=== PATIENT | male | born 1990 | race Two or more races ===

== ENCOUNTER 2017-04-19 03:03 | Emergency (ER) | payer SELFPAY ==
[~2017-04-19] VITALS: Ht 167.6 cm; Wt 63.5 kg
[2017-04-19 02:58] VITALS: BP 120/73
[2017-04-19] MEDS ORDERED: Activated Charcoal 50gm/240ml Btl ORAL ONE (03:15)
--- NOTE | 2017-04-19 03:21 | Emergency Room Report ---
History of Present Illness General Chief Complaint: Overdose Source: Patient Present Illness HPI This is a 26-year-old male with no past medical history. He presents with an overdose. Per EMS, girlfriend called 911 because he took an unknown amount of Excedrin. Patient had been in a verbal altercation with his girlfriend. He didn't took unknown amount of Excedrin. Girlfriend called 911. Patient denies taking any medication. He denies any suicidal or homicidal. Overall, he is not cooperating. Allergies: Coded Allergies: No Known Allergies (Unverified , 04/19/17) Patient History Past Medical History: none, see triage record, old chart reviewed Past Surgical History: none Family History: none Social History: single Immunizations: other Reviewed Nursing Documentation: PMH: Agreed, PSxH: Agreed Nursing Documentation-PMH Past Medical History: No Stated History Review of Systems ENT: Denies: sore throat Cardiovascular: Denies: chest pain, palpitations Gastrointestinal/Abdominal: Denies: diarrhea, nausea, vomiting Musculoskeletal: Denies: back problems Skin: Denies: rash Neurological: Denies: COVARRUBIAS, seizures All Other Systems: negative except mentioned in HPI Physical Exam Vital Signs Date Time Temp Pulse Resp B/P Pulse Ox O2 Delivery O2 Flow Rate FiO2 04/19/17 02:55 97.9 81 20 120/73 99 Room Air vitals normal Sp02 EP Interpretation: reviewed, normal General Appearance: alert/responsive, no apparent distress, non-toxic Head: normocephalic, atraumatic Eyes: PERRL, EOMI ENT: oropharynx normal Neck: supple/symm/no masses Respiratory: effort normal, no rhonchi, no wheezing Cardiovascular: no murmur, gallop, rub Gastrointestinal: non-tender, no mass, non-distended, no rebound/guarding, normal bowel sounds Musculoskeletal: gait & station normal Neurologic: oriented x3, sensory intact, motor strength/tone normal Skin: no rash, normal palpation Medical Decision Making Diagnostic Impression: Primary Impression: Drug overdose Qualified Codes: T50.902A - Poisoning by unspecified drugs, medicaments and biological substances, intentional self-harm, initial encounter ER Course Patient is calm and cooperative here now. He denies any suicidal thought homicidal thought. I spoke with his girlfriend on the phone. She said that he was complaining of a headache and after an argument he took a few Excedrin pill. He was not acting right so she was concerned called 911. Does not believe that he is suicidal or had any intent of hurting himself. She felt that he is safe at home. Patient said he wants to go to school tomorrow. He said this is classic he has to go to. Patient has no suicidal intent or plan. We'll discharge home if labs are unremarkable. Last Vital Signs Date Time Temp Pulse Resp B/P Pulse Ox O2 Delivery O2 Flow Rate FiO2 04/19/17 03:03 80 20 04/19/17 02:58 97.9 120/73 99 Room Air Status: improved Disposition: HOME, SELF-CARE Condition: Stable Patient Instructions: OVERDOSE, Intentional (Adult) Additional Instructions: Followup with your Dr. in 2-3 days. Return if he feels suicidal or having any other concern. BENI RICHARDSON M.D. Apr 19, 2017 03:21
[2017-04-19 03:44] LABS: BASOPHILS % (AUTO) 1.3 % (0.0-2.0); EOSINOPHILS % (AUTO) 0.9 % (0.0-3.0); LYMPHOCYTES % (AUTO) 25.5 % (20.0-45.0); MEAN CORPUSCULAR HEMOGLOBIN 29.3 PG (27.0-31.0); MEAN CORPUSCULAR HGB CONC 33.7 G/DL (32.0-36.0); MEAN CORPUSCULAR VOLUME 87 FL (80-99); MEAN PLATELET VOLUME 9.8 FL (6.5-10.1); MONOCYTES % (AUTO) 7.1 % (1.0-10.0); NEUTROPHILS % (AUTO) 65.2 % (45.0-75.0); PLATELET COUNT 265 K/UL (150-450); RED BLOOD COUNT 5.24 M/UL (4.70-6.10); RED CELL DISTRIBUTION WIDTH 11.2 % (11.6-14.8); WHITE BLOOD COUNT 7.3 K/UL (4.8-10.8)
[2017-04-19 03:48] LABS: APPEARANCE,URINE CLEAR; KETONES,URINE 1+ (NEGATIVE); LEUKOCYTE ESTERASE ,URINE NEGATIVE (NEGATIVE); NITRITE,URINE NEGATIVE (NEGATIVE); PH,URINE 7 (4.5-8.0); PROTEIN,URINE 2+ (NEGATIVE); UROBILINOGEN,URINE 8 MG/DL (0.0-1.0)
[2017-04-19 03:54] LABS: ACETAMINOPHEN < 10 ug/mL (10-30); ALANINE AMINOTRANSFERASE 17 U/L (3-41); ALBUMIN/GLOBULIN RATIO 1.5 (1.0-2.7); ALCOHOL < 10 mg/dL; ANION GAP 13 (5-15); ASPARTATE AMINO TRANSFERASE 36 U/L (5-40); CALCIUM 9.4 mg/dL (8.6-10.2); CARBON DIOXIDE 28 mEQ/L (20-30); CHLORIDE 99 mEQ/L (98-107); CREATININE 1.5 mg/dL (0.7-1.2); GLOMERULAR FILTRATION RATE 57.5 mL/min (>60); HEMOLYSIS 10; POTASSIUM 3.9 mEQ/L (3.4-4.9); SODIUM 140 mEQ/L (135-145); TOTAL PROTEIN 7.5 g/dL (6.6-8.7)
[2017-04-19 04:10] LABS: BACTERIA,URINE FEW /HPF; RBC,URINE 0-2 /HPF (0 - 0); SQUAMOUS EPITHELIAL CELL,UR FEW /LPF (NONE/OCC); WBC,URINE 0-2 /HPF (0 - 0)
[2017-04-19 04:28] VITALS: BP 125/79
== END 2017-04-19 04:28 | disposition home or self-care (01) ==
LOC: EDBD 03:03 → EMR 03:15
DX: T50.902A Poisoning by unspecified drugs, medicaments and biological substances, intentional self-harm, initial encounter (principal); X58.XXXA Exposure to other specified factors, initial encounter; Y93.9 Activity, unspecified; Y92.9 Unspecified place or not applicable
CPT/HCPCS: 36415; 80053; 80300; 81003; 85025; 99283; G0480; 80329